=== PATIENT | male | born 1960 | race Caucasian/White ===

== ENCOUNTER 2016-12-08 13:02 | Emergency (ER) | payer MEDICAID ==
[~2016-12-08] VITALS: Ht 165.1 cm; Wt 68.0 kg
[2016-12-08 13:25] LABS: BASOPHILS % (AUTO) 0.5 % (0.0-2.0); DIFF TOTAL % 100 %; EOSINOPHILS # (AUTO) 0.1 /CMM (0.0-0.7); EOSINOPHILS % (AUTO) 1.8 % (0.0-6.0); HEMATOCRIT 49 % (39-51); HEMOGLOBIN 15.5 g/dL (13.5-17.5); LYMPHOCYTES # (AUTO) 2.3 /CMM (0.8-4.8); MEAN CORPUSCULAR HEMOGLOBIN 26 PG (26.0-33.0); MEAN CORPUSCULAR HGB CONC 32 g/dl (31.0-36.0); MEAN CORPUSCULAR VOLUME 83 fL (80-96); MONOCYTES # (AUTO) 0.9 /CMM (0.1-1.30); MONOCYTES % (AUTO) 11.5 % (2.0-12.0); NEUTROPHILS # (AUTO) 4.3 /CMM (1.8-8.9); NEUTROPHILS % (AUTO) 56.2 % (43.0-81.0); PLATELET COUNT (AUTO) 230 /CMM (150-450); RED BLOOD CELL COUNT(AUTO) 5.91 MIL/uL (4.5-6.0); WHITE BLOOD COUNT (AUTO) 7.6 K/uL (4.3-11.0)
[2016-12-08 13:43] LABS: INR 1.02 (0.87-1.13); PROTHROMBIN TIME 10.7 SECS (9.5-12.7)
[2016-12-08 13:45] LABS: ALBUMIN 3.7 g/dL (3.4-5.0); BILIRUBIN,DIRECT 0.1 mg/dL (0.0-0.2); BILIRUBIN,TOTAL 0.4 mg/dL (0.2-1.0); CALCIUM, SERUM 8.9 mg/dL (8.5-10.1); INDIRECT BILIRUBIN 0.3 mg/dL (0.0-1.1); POTASSIUM 3.7 mmol/L (3.5-5.1); TOTAL PROTEIN, SERUM 6.9 g/dL (6.4-8.2)
[2016-12-08 15:30] VITALS: BP 120/70
== END 2016-12-08 15:31 | disposition home or self-care (01) ==
LOC: ER 13:05
DX: S09.90XA Unspecified injury of head, initial encounter (principal); H54.62 Unqualified visual loss, left eye, normal vision right eye; H26.9 Unspecified cataract; R56.9 Unspecified convulsions; R79.1 Abnormal coagulation profile; V43.52XA Car driver injured in collision with other type car in traffic accident, initial encounter; Y93.89 Activity, other specified; Y92.89 Other specified places as the place of occurrence of the external cause; Y99.9 Unspecified external cause status
CPT/HCPCS: 36415; 70450; 70480; 71010; 72125; 72170; 80048; 80076; 83690; 85025; 85730; 99285; A4606; L0172; Z7610

== ENCOUNTER 2017-02-14 06:59 | Inpatient (IN) | payer MEDICAID ==
[~2017-02-14] VITALS: Ht 170.2 cm; Wt 68.5 kg
--- NOTE | 2017-02-14 07:10 | NUR ---
PT BIB SELF C/O CP "STABBING LIKE AN ELEPHANT" AND "LIKE MY HEART IS EXPLODING" SINCE 05. NO RADIATION, NO PROVOCATION. C/O ASSOCIATED DIZZINESS AND DIAPHORESIS. SKIN WARM NONDIAPHORETIC UPON ASSESSMENT. PT REPORTS DYSPNEA; RESP APPEAR EVEN AND UNLABORED, SPO2 100% ON 2LPM VIA NC PER PROTOCOL. PT IS SEEN SHAKING, WHICH HE REPORTS IS D/T PAIN; ABLE TO STOP SHAKING ON COMMAND. EKG IN PROCESS. A/OX4. TO BEDSIDE FOR EVAL. IN ER BED 05 ON MONITOR.
[2017-02-14] MEDS ORDERED: DILTIAZEM HCL 25 MG IV ONE (07:13)
--- NOTE | 2017-02-14 07:13 | NUR ---
DR. FORBES AT BEDSIDE FOR EVAL.
--- NOTE | 2017-02-14 07:18 | NUR ---
DILTIAZEM 20MG SLOW IVP PER VERBAL ORDER BY DR FORBES, AT BEDSIDE.
[2017-02-14] MEDS ORDERED: IV SET PRIMARY 1 EA INFUS.SET MC ONE ×2 (07:20→08:43)
[2017-02-14] MEDS ORDERED: ASPIRIN 325 MG TABLET ONE (07:20)
[2017-02-14] MEDS ORDERED: IV NS 0.9% 1,000 ML ONE ×2 (07:20→08:43)
--- NOTE | 2017-02-14 07:26 | NUR ---
CP RELIEVED TO 05/10, PT STATES HE FEELS IT "COMING DOWN"
[2017-02-14] MEDS ORDERED: IV NS 0.9% 1,000 ML BAG IV ONE ×2 (07:30→08:30)
[2017-02-14] MEDS ORDERED: NITROGLYCERIN 0.4 MG/TAB BOTTLE SL ONE (07:30)
[2017-02-14] MEDS ORDERED: ASPIRIN 325 MG TABLET PO ONE (07:30)
[2017-02-14] MEDS ORDERED: NITROGLYCERIN 0.4 MG/TAB BOTTLE ONE (07:35)
--- NOTE | 2017-02-14 07:39 | NUR ---
1ST DOSE NITRO 0.4MG SL ADMINISTERED. PT REPORTS PAIN IS "COMING BACK", NOW 8. HR 100, BP 120/71.
[2017-02-14] MEDS ORDERED: IOHEXOL-350 100 ML VIAL IV ONE (07:42)
[2017-02-14] MEDS ORDERED: CT SWABBABLE VALVE TRANS SET 1 EA INFUS.SET MC ONE (07:42)
[2017-02-14] MEDS ORDERED: IV NS 0.9% 250 ML IV ONE ×2 (07:42→08:43)
[2017-02-14 07:44] LABS: BASOPHILS % (AUTO) 0.3 % (0.0-2.0); EOSINOPHILS % (AUTO) 0.4 % (0.0-6.0); HEMATOCRIT 47 % (39-51); HEMOGLOBIN 15.6 g/dL (13.5-17.5); LYMPHOCYTES # (AUTO) 1.8 /CMM (0.8-4.8); LYMPHOCYTES % (AUTO) 18.2 % (20.0-44.0); MEAN CORPUSCULAR HEMOGLOBIN 28 PG (26.0-33.0); MEAN CORPUSCULAR HGB CONC 33 g/dl (31.0-36.0); MEAN CORPUSCULAR VOLUME 84 fL (80-96); MONOCYTES % (AUTO) 9.7 % (2.0-12.0); NEUTROPHILS % (AUTO) 71.4 % (43.0-81.0); PLATELET COUNT (AUTO) 252 /CMM (150-450); RDW COEFFICIENT OF VARIATION 15.7 (11.5-15.0); RED BLOOD CELL COUNT(AUTO) 5.56 MIL/uL (4.5-6.0); WHITE BLOOD COUNT (AUTO) 9.8 K/uL (4.3-11.0)
--- NOTE | 2017-02-14 07:45 | NUR ---
2ND DOSE NITRO SL ADMISINTERED FOR 8/10 CP, NO RELIEF FROM FIRST DOSE. HR 100, BP 123/75
[2017-02-14] MEDS ORDERED: MORPHINE SULFATE INJ 2 MG/ML DISP.SYRIN ONE (07:47)
--- NOTE | 2017-02-14 07:53 | NUR ---
MORPHINE 2MG AND 3RD DOSE NITRO 0.4MG SL ADMINISTERED, 06/10 PAIN. HR 103, BP 123/75.
[2017-02-14 07:57] LABS: CALCIUM, SERUM 8.9 mg/dL (8.5-10.1); CARBON DIOXIDE 25 mmol/L (21-32); CHLORIDE 109 mmol/L (98-107); CREATININE 1.2 mg/dL (0.6-1.3); GFR 63 mL/min (>60); GLUCOSE 129 mg/dL (74-106); POTASSIUM 4.5 mmol/L (3.5-5.1); SODIUM SERUM 146 mmol/L (136-145); UREA NITROGEN, BLOOD 15 mg/dL (7-18)
[2017-02-14] MEDS ORDERED: DILTIAZEM HCL 25 MG IV IV ONE (08:00)
[2017-02-14] MEDS ORDERED: MORPHINE SULFATE INJ 2 MG/ML DISP.SYRIN IV ONE (08:00)
[2017-02-14 08:02] LABS: D-DIMER 0.29 mg/L(FEU (0.17-0.50); INR 1.03 (0.87-1.13)
[2017-02-14 08:05] LABS: TROPONIN I < 0.017 ng/mL (0.00-0.056)
[2017-02-14 08:10] LABS: B-TYPE NATRIURETIC PEPTIDE 111 PG/ML (0-125)
--- NOTE | 2017-02-14 08:10 | NUR ---
XRAY AT BEDSIDE
[2017-02-14 08:14] LABS: LACTIC ACID 2.6 mmol/L (0.4-2.0)
--- NOTE | 2017-02-14 08:15 | NUR ---
PT TRANSPORTED TO CT IN STABLE CONDITION
[2017-02-14 08:26] LABS: CANNABINOID, URINE NEGATIVE (NEGATIVE); PHENCYCLIDINE SCREEN,URINE NEGATIVE (NEGATIVE)
[2017-02-14 08:27] LABS: APPEARANCE,URINE CLEAR (CLEAR); BILIRUBIN,URINE NEGATIVE (NEGATIVE); BLOOD, URINE TRACE Ery/uL (NEGATIVE); COLOR,URINE YELLOW (YELLOW); KETONES,URINE NEGATIVE (NEGATIVE); LEUKOCYTE ESTERASE ,URINE NEGATIVE (NEGATIVE); NITRITE, URINE NEGATIVE (NEGATIVE); PROTEIN,URINE NEGATIVE (NEGATIVE); UGLUCOSE NEGATIVE (NEGATIVE); UROBILINOGEN,URINE 0.2 EU/dL (0.2)
[2017-02-14 08:30] LABS: ADD URINE CULTURE NO; BACTERIA,URINE None seen /HPF (None Seen); RBC,URINE 0-2 /HPF (0-2); SQUAMOUS EPITHELIAL CELL,UR 0-2 /HPF (None Seen); WBC,URINE 0-2 /HPF (0-3)
--- NOTE | 2017-02-14 08:35 | NUR ---
nursing sup paged for tele bed
[2017-02-14] MEDS ORDERED: NITROGLYCERIN PACKET 1 GM PACKET ONE (08:49)
[2017-02-14] MEDS ORDERED: NAPR220T66 PO (08:59)
[2017-02-14] MEDS ORDERED: GABA-532 PO (08:59)
[2017-02-14] MEDS ORDERED: NITROGLYCERIN PACKET 1 GM PACKET TD ONE (09:00)
--- NOTE | 2017-02-14 09:13 | NUR ---
PANEL ON-CALL PAGED
[2017-02-14] MEDS ORDERED: ACETAMINOPHEN 325 MG TABLET PO PRN (09:30)
[2017-02-14] MEDS ORDERED: ONDANSETRON HCL/PF 4 MG/2 ML VIAL IVP PRN (09:30)
[2017-02-14] MEDS ORDERED: ASPIRIN 81 MG TAB.CHEW PO SCH (09:30)
[2017-02-14] MEDS ORDERED: ZOLPIDEM TARTRATE 5 MG TABLET PO PRN (09:30)
[2017-02-14 09:54] LABS: BILIRUBIN,DIRECT 0.1 mg/dL (0.0-0.2); BILIRUBIN,TOTAL 0.5 mg/dL (0.2-1.0)
[2017-02-14 10:08] LABS: LACTIC ACID REFLEX 0.9 mmol/L (0.4-1.9)
--- NOTE | 2017-02-14 10:29 | NUR ---
report given to mo small for admission. NAD noted. resting comfortably, all needs attended to. VSS.
--- NOTE | 2017-02-14 10:52 | NUR ---
PT TRANSPORTED TO [facility] IN STABLE CONDITION VIA ACLS PROTOCOL
--- NOTE | 2017-02-14 11:12 | NUR ---
PLANNER CHIEF NOTES PATIENT RECEIVED FROM ER AT 1052, IN STABLE CONDITION, COMPLAINS OF CHEST PAIN 3/10, WITH PAIN RADIATING TO LEFT ARM, PATIENT NOTED WITH NITRO PASTE ON LEFT CHEST, NEEDS ATTENDED, PLACED ON MONITOR AND SHOWS SINUS RHYTHM ON 80-90S, PATIENT SEEN BY DR. ALEX WITH ORDER TO TRANSFER PATIENT TO [facility] FOR ADVANCED CARE. PATIENT AWARE.
[2017-02-14] MEDS ORDERED: AMIODARONE 900 MG in IV D5W 500 ML IV PRN (11:30)
[2017-02-14] MEDS ORDERED: AMIODARONE 150 MG in IV D5W 100 ML IV ONE (11:30)
--- NOTE | 2017-02-14 12:00 | NUR ---
SALES PROMOTION COORDINATOR NOTES PATIENT SEEN AND EXAMINED BY DR. GUERRERO, PATIENT IN STABLE CONDITION TRANSFERRED TO [facility] IN BED 101 VIA ACLS PROTOCOL, MONITOR SHOWS SINUS RHYTHM 80S, BEDSIDE REPORT GIVEN TO MARINA.
[2017-02-14] MEDS ORDERED: IV SET PRIMARY PUMP SET 1 EA INFUS.SET MC ONE ×2 (12:06→14:09)
--- NOTE | 2017-02-14 12:15 | NUR ---
[facility] RN NOTE RECEIVED PATIENT FROM [facility] ALERT ,ORIENTED ,PACED ON TELE MONITOR SR 76 C\O CHEST PAIN 8\1O SCALE [facility]OS[facility] ORIENTATION DONE , VS TAKEN BODY CHECK DONE , ADMISSION ORDER CARRIED OUT HL ON RT AC AND LT AC HL INTACT NO S\S INFECTION NOTED, RESPIRATION UNLABORED ,PER DR GUERRERO PLACED ON AMIODARONE DRIP ORDERED , PLAN OF CARE DISCUSSED WITH PATIENT , WILL CONT TO MONITOR CLOSELY
[2017-02-14] MEDS: MORPHINE SULFATE INJ 2 MG/ML DISP.SYRIN IV PRN ×3 (12:22→20:48)
[2017-02-14 12:36] LABS: THYROID STIMULATING HORMONE 0.628 uIU/mL (0.358-3.74)
[2017-02-14 13:22] LABS: MAGNESIUM 1.8 mg/dL (1.8-2.4); PHOSPHORUS 3.2 mg/dL (2.5-4.9)
[2017-02-14 13:32] VITALS: BP 135/78
[2017-02-14] MEDS: IV NS 0.9% 1,000 ML IV PRN (14:14)
[2017-02-14] MEDS ORDERED: AMIODARONE 900 MG in IV D5W 482 ML IV PRN (14:30)
--- NOTE | 2017-02-14 14:47 | NUR ---
tele rnnnote morphine 1mg give for chest pain as ordered, will monitor closely ,still sr on monitor sr cont amiodarone dripp 1 mg as ordered ,new hl,on lt hand inserted with good blood return ,started on ivf as ordered 1mg i Addendum: 02/14/17 at 1834 by NEGRITO CARBAJAL RN CONT ON AMIODARONE DRIP ORDERED ,RECEIVED MORPHINE 1 MG ORDERED FOR PAIN
[2017-02-14 16:00] VITALS: BP_SYST 135; BP_DIAS 72; BP_DIAS 78
--- NOTE | 2017-02-14 16:34 | NUR ---
[facility] RN NOTE 2DECHO DONE ,EF 35/40% ,PAGED DR ALEX .AWAIT FOR RERUN CALL
[2017-02-14] MEDS: RIVAROXABAN 10 MG TABLET PO SCH (16:58)
[2017-02-14] MEDS: METOPROLOL TARTRATE 25 MG TABLET PO SCH (17:00)
--- NOTE | 2017-02-14 18:18 | NUR ---
[facility] RN NOTE CALLED TO TO DR ALEX BUT DR PHELPS ON NOTIFIED THAT EF TODAY 35% PER ECHO , PATIENT IS ASYMPTOMATIC ,NO C\O CHEST PAIN OR SOB AT THIS TIME , ALSO NOTIFIED THAT ON TELE MONITOR SR AND PATIENT ON AMIODARONE DRIP ,STATED ITS OK CONT DRIP NO NEW ORDER GIVE AT THIS TIME, DR ALEX TO SEE IN AM
--- NOTE | 2017-02-14 18:35 | NUR ---
[facility] RN NOTE STILL ON AMIODARONE DRIP PER HOSPITAL PROTOCOL, CHANGED DOSE TO 0.5 MG PER PROTOCOL
[2017-02-14 20:00] VITALS: BP 97/63
--- NOTE | 2017-02-14 20:50 | NUR ---
RN NOTES RECEIVED PT AWAKE ON BED. AOX4 ABLE TO MAKE KNOWN NEEDS. NO ACUTE RESP DISTRESS WATCHING TV ON BED. AFEBRILE WITH O2 2 LPM VIA NC SATING 98%. SR HR 65 ON TELE MONITOR. IV SITE ON RAC G 18 RUNNING WITH AMIODARONE @ 0.5 MG/MIN AND LEFT HAND G 22 RUNNING WITH NS @ 100 CC/HR. PT IS COMPLAINING OF PAIN PAIN MEDICINE GIVEN ORDERED. COMPLAINING OF PAIN AT SCALE OF 7/10 PAIN MEDICINE GIVEN ORDERED. ENCOURAGE TO USED CALL LIGHT FOR ASSISTANCE. KEPT PT CLEAN AND COMFORTABLE ON BED. WILL CONTINUE TO MONITOR.
[2017-02-14] MEDS: SIMVASTATIN 20 MG TABLET PO SCH (20:58)
[2017-02-15] VITALS (8 sets, daily range): BP systolic 100–114; BP diastolic 63–75
[2017-02-15] MEDS: MORPHINE SULFATE INJ 2 MG/ML DISP.SYRIN IV PRN (00:34)
[2017-02-15] MEDS: IV NS 0.9% 1,000 ML IV PRN ×2 (00:37→10:32)
[2017-02-15] MEDS: NITROGLYCERIN 0.4 MG/TAB BOTTLE SL PRN ×3 (03:25→03:52)
--- NOTE | 2017-02-15 03:26 | NUR ---
RN NOTES NITROGLYCERIN SL GIVEN PER PATIENT HE HAS 7/10 SCALE STILL INSPITE OF GIVING PAIN MEDICINE, WILL TRIED ANOTHER DOSE IF PAIN DID NOT SUBSIDE AFTER 5 MINUTES. NO SOB OR DISTRESS NOTED. PT TELLING STORIES ABOUT WHAT HAPPEN ON HIS ACCIDENT. WILL CONTINUE TO MONITOR.
--- NOTE | 2017-02-15 04:09 | NUR ---
RN NOTES INFORMED DR. PALMA REGARDING PATIENT STILL COMPLAINING OF CHEST PAIN AT SCALE OF 7/10 AFTER MORPHINE IVP X 2 DOSES GIVEN 3 HOUR AGO WELL NITROGLYCERIN X 3 DOSES GIVEN. PER PATIENT HE FEELS LIKE SOMEONE STEPPING ON HIS CHEST BUT NOT RADIATING. BUT WHEN HE PUT PILLOW ON HIS CHEST ITS SUBSIDE A LITTLE BIT. TEMP 98, RESP 19 PULSE 75 BP 108/71 SATING 98% IN O2 2LPM VIA NC. PER DR. PALMA TO GIVE MORPHINE 4 MG IVP Q3H PRN PLACED AND ACKNOWLEDGE ORDER.
[2017-02-15] MEDS: MORPHINE SULFATE INJ 4 MG/ML DISP.SYRIN IV PRN ×3 (04:21→16:13)
--- NOTE | 2017-02-15 06:54 | NUR ---
RN NOTES PT DIDN'T SLEEP LAST NIGHT OFFERED PRN SLEEPING PILL MEDICINE BUT REFUSED TO TAKE IT. PT COMPLAINING OF PAIN AT SCALE OF 7/10 SCALE ON HIS CHEST LIKE SOMEONE PUNCHED HIM PRN MEDICINE GIVEN ORDERED EFFECTIVE FOR A LITTLE WHILE. BUT PT STILL COMPLAINING OF PAIN VS STABLE. NO SOB SATING FINE . IVF ONGOING AMIODARONE DRIP RUNNING @ 0.5 MG/MIN.= 16.6 ML/HR TOLERATED WELL.IV SITE INTACT AND PATENT. KEPT PT CLEAN AND COMFORTABLE IN BED. WILL ENDORSED CONTIUITY OF CARE TO AM NURSE.
[2017-02-15 06:58] LABS: BASOPHILS % (AUTO) 0.2 % (0.0-2.0); EOSINOPHILS # (AUTO) 0.1 /CMM (0.0-0.7); EOSINOPHILS % (AUTO) 1.3 % (0.0-6.0); HEMATOCRIT 41 % (39-51); HEMOGLOBIN 13.7 g/dL (13.5-17.5); LYMPHOCYTES # (AUTO) 1.4 /CMM (0.8-4.8); LYMPHOCYTES % (AUTO) 23.4 % (20.0-44.0); MEAN CORPUSCULAR HEMOGLOBIN 29 PG (26.0-33.0); MEAN CORPUSCULAR HGB CONC 34 g/dl (31.0-36.0); MEAN CORPUSCULAR VOLUME 85 fL (80-96); MONOCYTES # (AUTO) 0.7 /CMM (0.1-1.30); MONOCYTES % (AUTO) 12.1 % (2.0-12.0); NEUTROPHILS # (AUTO) 3.8 /CMM (1.8-8.9); PLATELET COUNT (AUTO) 181 /CMM (150-450); RDW COEFFICIENT OF VARIATION 15.9 (11.5-15.0); RED BLOOD CELL COUNT(AUTO) 4.81 MIL/uL (4.5-6.0); WHITE BLOOD COUNT (AUTO) 6.1 K/uL (4.3-11.0)
--- NOTE | 2017-02-15 07:05 | NUR ---
RN INITIAL NOTES RECEIVED PT AWAKE, A/OX4. NO RESPIRATORY DISTRESS NOTED. NO SOB NOTED. DENIES CHEST PAIN. DENIES ANY PAIN. ON 02 AT 2LPM VIA NC. SINUS RHYTHM ON MONITOR. LH #22 AND RAC #[address] ON AMIO DRIP AT 0.5MG/MIN. ON NS AT 100ML/HR. PT COMFORTABLE. CALL LIGHT WITHIN REACH. WILL MONITOR.
[2017-02-15 07:10] LABS: ALANINE AMINOTRANSFERASE 27 U/L (12-78); ALKALINE PHOSPHATASE 56 U/L (46-116); ASPARTATE AMINOTRANSFERASE 16 U/L (15-37); BILIRUBIN,TOTAL 0.7 mg/dL (0.2-1.0); CALCIUM, SERUM 7.9 mg/dL (8.5-10.1); CARBON DIOXIDE 26 mmol/L (21-32); CHLORIDE 110 mmol/L (98-107); GFR 77 mL/min (>60); GLUCOSE 90 mg/dL (74-106); MAGNESIUM 1.8 mg/dL (1.8-2.4); PHOSPHORUS 2.6 mg/dL (2.5-4.9); POTASSIUM 4.3 mmol/L (3.5-5.1); SODIUM SERUM 143 mmol/L (136-145); TOTAL PROTEIN, SERUM 5.7 g/dL (6.4-8.2); UREA NITROGEN, BLOOD 12 mg/dL (7-18)
[2017-02-15 07:21] LABS: TROPONIN I < 0.017 ng/mL (0.00-0.056)
[2017-02-15] MEDS: METOPROLOL TARTRATE 25 MG TABLET PO SCH ×2 (08:10→16:05)
[2017-02-15] MEDS ORDERED: ASPIRIN 81 MG TAB.CHEW PO SCH (09:00)
[2017-02-15 11:24] LABS: CHOLESTEROL 97 mg/dL (<200); HDL CHOLESTEROL 28 mg/dL (40-60); LDL 58 mg/dL (0-99); TRIGLYCERIDES 80 mg/dL (30-150)
[2017-02-15] MEDS: AMIODARONE HCL 200 MG TABLET PO SCH (16:03)
[2017-02-15] MEDS: RIVAROXABAN 10 MG TABLET PO SCH (16:04)
--- NOTE | 2017-02-15 18:40 | NUR ---
RN CLOSING NOTES PT REMAINS A/OX4. NO RESPIRATORY DISTRESS NOTED. PT WELL MANAGED. KEPT COMFORTABLE. IV LINE IN PLACE. KEPT CLEAN AND DRY. ALL NEEDS ATTENDED AN D MET. CALL LIGHT WITHIN REACH WILL. WILL ENDORSE FOR CONTINUITY OF CARE.
--- NOTE | 2017-02-15 20:00 | NUR ---
RN INITIAL NOTE ; PT ON THE BED RESTING COMFORTABLY WITHOUT ANY DISTRESS , A/O X 4 WITH PERIODS OF FORGETFULNESS . BREATHING EVEN AND UNLABORED ON 2 LPM VIA NC . SR WITH HR 80s ON TELE MONITOR, PERIPHERAL IV IN RAC 18G INTACT AND PATENT, DENIED ANY CHEST PAIN AT THIS TIME. CONTINENT BOWEL/BLADDER. BED IN THE LOWEST/LOCKED POSITION, SAFETY MEASURES APPLIED, CALL LIGHT WITHIN REACH, STRESS TEST TOMORROW, NPO POST MIDNIGHT , NO COFFEE/TEA , PT MADE AWARE. WILL CONTINUE TO MONITOR .
[2017-02-15] MEDS: SIMVASTATIN 20 MG TABLET PO SCH (21:39)
[2017-02-16] VITALS: BP 103/61
[2017-02-16 04:00] VITALS: BP 104/70
--- NOTE | 2017-02-16 07:00 | NUR ---
RN EOS NOTE; PT REMAINED STABLE DURING THE SHIFT, NO ANY DISTRESS NOTED. DENIED ANY CHEST PAIN , ALL NEEDS ATTENDED PROMPTLY, ON NPO STATUS FOR STRESS TEST , CALL LIGHT WITHIN REACH. WILL ENDORSE TO NEXT SHIFT FOR CONTINUITY OF CARE.
--- NOTE | 2017-02-16 07:20 | NUR ---
RN INITIAL NOTES: Received patient on bed during rounds, awake, alert and oriented x4, able to make needs known, call lights placed within reached, instructed to press call light when in need of any assistance, patient verbalized understanding of home instructions. Patient instructed NPO, maintained, no coffee no tea no Betablockers, For Lexiscan today consent up. With IV Plug over RAC G18 flushed with NS and patent, SL. NO SOB, No LOC, respirations are even and unlabored, no acute distress noted. Kept clean and dry. Provided safety and comfort measures. patient able to ambulate/BPR with contact guard assist, no chestpain noted at this time, patient appears calm and pleasant. To continue to monitor accordingly.
[2017-02-16 08:00] VITALS: BP 108/73
[2017-02-16] MEDS ORDERED: REGADENOSON 0.4 MG/5 ML DISP.SYRIN IVP ONE (08:00)
[2017-02-16 10:00] VITALS: BP 129/78
[2017-02-16 10:11] VITALS: BP 129/78
[2017-02-16] MEDS: METOPROLOL TARTRATE 25 MG TABLET PO SCH (10:11)
[2017-02-16] MEDS: AMIODARONE HCL 200 MG TABLET PO SCH (10:11)
--- NOTE | 2017-02-16 10:11 | NUR ---
RN NOTES: Due medications given as ordered.
[2017-02-16] MEDS ORDERED: AMIO200T7 PO (13:09)
[2017-02-16] MEDS ORDERED: RIVA10TA PO (13:09)
[2017-02-16] MEDS ORDERED: METO25TA20 PO (13:09)
--- NOTE | 2017-02-16 16:46 | NUR ---
RN NOTES: Patient dc to home at 1600hrs, dc paper forms explained, signed and verbalized understanding of home instructions, emphasized to see PCP in a week for review of medications. No signs and symptoms of distress noted, no pain or discomfort, no chestpain noted. Right Antecubital IV plug removed, applied slight pressure dressing, no bleeding noted. Patient accompanied to lobby by COLLEGE ATHLETIC DIRECTOR ambulatory in stable condition, as per patient he will wait for his friend in the lobby for picker tender.
== END 2017-02-16 15:54 | disposition home or self-care (01) | DRG 201 ==
LOC: ER 07:02 → MED 10:45 → TELE-TD 11:49 → TELE1 02-15 12:04 → MEDSG1 02-16 10:35
PROVIDERS: ADMIT Internal Medicine; ATTEND Internal Medicine
DX: I48.91 Unspecified atrial fibrillation (principal); E87.0 Hyperosmolality and hypernatremia; E87.2 Acidosis; D68.59 Other primary thrombophilia; E86.0 Dehydration; Z98.1 Arthrodesis status; Z98.61 Coronary angioplasty status; I25.119 Atherosclerotic heart disease of native coronary artery with unspecified angina pectoris
CPT/HCPCS: 36415; 71010-TC; 80048-TC; 80053-TC; 80061-TC; 80305; 81000-TC; 82247-TC; 82248-TC; 82306; 83605-TC; 83735-TC; 83880; 84100-TC; 84439-TC; 84443-TC; 84484-TC; 85025-TC; 85378-TC; 85730-TC; 87040-TC; 87081-TC; 93307-TC; 94799-TC; A4606; A6403; A9502; J0282; J2270; J2785; J3490; J7030; J7050; J7060; Q9967; Z7610

== ENCOUNTER 2017-09-01 23:06 | Inpatient (IN) | payer MEDICARE, MEDICAID ==
[~2017-09-01] VITALS: Ht 170.2 cm; Wt 63.0 kg
[~2017-09-01 23:06] MED LIST: AMIO200T7 PO; GABA-532 PO; METO25TA20 PO; NAPR220T66 PO; RIVA10TA PO
--- NOTE | 2017-09-01 23:20 | NUR ---
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 UPON ARRIVAL TO ER, PATIENT IS AAOX4, NAD NOTED. BREATHING EVEN AND UNLABORED. VSS. NONDIAPHORETIC. NSR ON THE TELE. GOWNED. COMFORT MEASURES RENDERED. ONGOING CARDIAC AND VS MONITOR.
--- NOTE | 2017-09-01 23:28 | NUR ---
CALLED FOR TELE BED
[2017-09-01] MEDS ORDERED: NITROGLYCERIN 0.4 MG/TAB BOTTLE SL ONE (23:30)
[2017-09-01] MEDS ORDERED: ASPIRIN 325 MG TABLET PO ONE (23:30)
--- NOTE | 2017-09-01 23:30 | NUR ---
started a saline lock on the lac g20, bloo drawn and sent to lab.
[2017-09-01] MEDS ORDERED: NITROGLYCERIN 0.4 MG/TAB BOTTLE ONE (23:31)
[2017-09-01] MEDS ORDERED: ASPIRIN 325 MG TABLET ONE (23:31)
[2017-09-01 23:33] LABS: BASOPHILS % (AUTO) 0.6 % (0.0-2.0); EOSINOPHILS # (AUTO) 0.1 /CMM (0.0-0.7); EOSINOPHILS % (AUTO) 1.8 % (0.0-6.0); HEMATOCRIT 47 % (39-51); HEMOGLOBIN 15.7 g/dL (13.5-17.5); LYMPHOCYTES # (AUTO) 1.9 /CMM (0.8-4.8); LYMPHOCYTES % (AUTO) 24.7 % (20.0-44.0); MEAN CORPUSCULAR HEMOGLOBIN 29 PG (26.0-33.0); MEAN CORPUSCULAR HGB CONC 33 g/dl (31.0-36.0); MEAN CORPUSCULAR VOLUME 88 fL (80-96); MONOCYTES # (AUTO) 0.8 /CMM (0.1-1.30); NEUTROPHILS # (AUTO) 4.7 /CMM (1.8-8.9); NEUTROPHILS % (AUTO) 61.9 % (43.0-81.0); PLATELET COUNT (AUTO) 208 /CMM (150-450); RDW COEFFICIENT OF VARIATION 14.1 (11.5-15.0); RED BLOOD CELL COUNT(AUTO) 5.34 MIL/uL (4.5-6.0); WHITE BLOOD COUNT (AUTO) 7.5 K/uL (4.3-11.0)
[2017-09-01 23:43] LABS: CARBON DIOXIDE 28 mmol/L (21-32); CHLORIDE 105 mmol/L (98-107); GLUCOSE 95 mg/dL (74-106); POTASSIUM 4.2 mmol/L (3.5-5.1); SODIUM SERUM 142 mmol/L (136-145); UREA NITROGEN, BLOOD 13 mg/dL (7-18)
[2017-09-01 23:51] LABS: D-DIMER < 0.19 mg/L(FEU (0.17-0.50); INR 1.01 (0.87-1.13); PARTIAL THROMBOPLASTIN TIME 27 SEC (23-34); PROTHROMBIN TIME 10.5 SECS (9.5-12.7)
[2017-09-01 23:52] LABS: TROPONIN I < 0.017 ng/mL (0.00-0.056)
--- NOTE | 2017-09-01 23:56 | NUR ---
TELE 323-2
--- NOTE | 2017-09-02 00:12 | NUR ---
RN TELEHEALTH MICHOACANO AT BEDSIDE TO EVAL.
--- NOTE | 2017-09-02 00:15 | NUR ---
Report given to Rvi RN for admission and nafisa.
[2017-09-02] MEDS ORDERED: MAGNESIUM HYDROXIDE 30 ML UDC PO PRN (00:30)
[2017-09-02] MEDS ORDERED: MAG HYDROX/AL HYDROX/SIMETH 30 ML UDC PO PRN (00:30)
[2017-09-02] MEDS ORDERED: ZOLPIDEM TARTRATE 5 MG TABLET PO PRN (00:30)
[2017-09-02] MEDS ORDERED: ACETAMINOPHEN 325 MG TABLET PO PRN (00:30)
[2017-09-02] MEDS ORDERED: ONDANSETRON HCL/PF 4 MG/2 ML VIAL IVP PRN (00:30)
[2017-09-02] MEDS ORDERED: MORPHINE SULFATE INJ 2 MG/ML DISP.SYRIN IV PRN (00:30)
[2017-09-02] MEDS ORDERED: HYDROCODONE/APAP 5/325MG 1 EACH TABLET PO PRN (00:30)
[2017-09-02 00:40] VITALS: BP 122/73
--- NOTE | 2017-09-02 00:40 | NUR ---
RN NOTES RECEIVED PATIENT FROM ER FOR DX CHEST PAIN; R/O ACS. AO X 3, ABLE TO MAKE NEEDS KNOWN. NO ACUTE DISTRESS NOTED. DENIES CHEST PAIN AT THIS TIME. TELE READING SR HR 83. IV SITE PATENT, INTACT; FLUSHED. SKIN INTACT. ON LOW BED WITH BILATERAL UPPER SIDE RAILS UP. CALL LIGHT WITHIN EASY REACH. WILL CONTINUE TO MONITOR.
[2017-09-02 00:45] VITALS: BP 122/73
[2017-09-02] MEDS ORDERED: DIAZEPAM 5 MG TABLET PO PRN (01:00)
[2017-09-02] MEDS ORDERED: ACETAMINOPHEN 325 MG TABLET ONE (01:04)
[2017-09-02] MEDS ORDERED: ZOLPIDEM TARTRATE 5 MG TABLET ONE (01:34)
[2017-09-02 04:00] VITALS: BP 121/79
[2017-09-02] MEDS ORDERED: NITROGLYCERIN 0.4 MG/TAB BOTTLE ONE (04:54)
[2017-09-02] MEDS: NITROGLYCERIN 0.4 MG/TAB BOTTLE SL PRN ×2 (05:00→08:21)
[2017-09-02 06:26] LABS: BASOPHILS % (AUTO) 0.5 % (0.0-2.0); EOSINOPHILS # (AUTO) 0.1 /CMM (0.0-0.7); EOSINOPHILS % (AUTO) 2.1 % (0.0-6.0); HEMATOCRIT 46 % (39-51); HEMOGLOBIN 15.6 g/dL (13.5-17.5); LYMPHOCYTES # (AUTO) 1.4 /CMM (0.8-4.8); LYMPHOCYTES % (AUTO) 23.7 % (20.0-44.0); MEAN CORPUSCULAR HEMOGLOBIN 30 PG (26.0-33.0); MEAN CORPUSCULAR HGB CONC 34 g/dl (31.0-36.0); MEAN CORPUSCULAR VOLUME 88 fL (80-96); MONOCYTES # (AUTO) 0.6 /CMM (0.1-1.30); MONOCYTES % (AUTO) 10.4 % (2.0-12.0); NEUTROPHILS # (AUTO) 3.7 /CMM (1.8-8.9); NEUTROPHILS % (AUTO) 63.3 % (43.0-81.0); PLATELET COUNT (AUTO) 195 /CMM (150-450); RDW COEFFICIENT OF VARIATION 14.3 (11.5-15.0); RED BLOOD CELL COUNT(AUTO) 5.26 MIL/uL (4.5-6.0); WHITE BLOOD COUNT (AUTO) 5.8 K/uL (4.3-11.0)
--- NOTE | 2017-09-02 06:32 | NUR ---
RN NOTES PATIENT ASLEEP, EASILY AROUSABLE. RESPIRATIONS EVEN. NO SIGNS OF PAIN NOTED. NEEDS ATTENDED. SAFETY PRECAUTIONS AND COMFORT MEASURES IN PLACE. WILL GIVE REPORT TO DAY SHIFT FOR CONTINUITY OF CARE.
[2017-09-02 06:45] LABS: TROPONIN I < 0.017 ng/mL (0.00-0.056)
[2017-09-02 06:52] LABS: CALCIUM, SERUM 8.8 mg/dL (8.5-10.1); CARBON DIOXIDE 27 mmol/L (21-32); CHLORIDE 106 mmol/L (98-107); GLUCOSE 90 mg/dL (74-106); MAGNESIUM 2.1 mg/dL (1.8-2.4); PHOSPHORUS 2.9 mg/dL (2.5-4.9); POTASSIUM 3.6 mmol/L (3.5-5.1); SODIUM SERUM 141 mmol/L (136-145); UREA NITROGEN, BLOOD 13 mg/dL (7-18)
[2017-09-02 07:00] VITALS: BP 124/84
[2017-09-02 08:00] VITALS: BP 115/76
--- NOTE | 2017-09-02 08:53 | NUR ---
PT. ALERT AND ORIENTED X3-C/CHEST PAIN RADIATING DOWN LT. ARM-MEDICATED WITH NTG.0.4 MG.
[2017-09-02] MEDS ORDERED: ASPIRIN 325 MG TABLET PO SCH (09:00)
[2017-09-02] MEDS ORDERED: METOPROLOL TARTRATE 25 MG TABLET PO SCH ×2 (09:00→17:00)
--- NOTE | 2017-09-02 09:00 | NUR ---
GOOD RELIEF WITH NTG.
[2017-09-02 09:23] VITALS: BP 115/76
[2017-09-02 09:41] LABS: CHOLESTEROL 147 mg/dL (<200); HDL CHOLESTEROL 46 mg/dL (40-60); LDL 93 mg/dL (0-99); TRIGLYCERIDES 43 mg/dL (30-150)
--- NOTE | 2017-09-02 09:44 | NUR ---
GIVEN SOLU-MEDROL PER DR. ALEX.
[2017-09-02] MEDS ORDERED: methylPREDNISolone SOD SUCC 125 MG/2ML VIAL IV ONE (10:00)
--- NOTE | 2017-09-02 10:15 | NUR ---
DR. ALEX IN AND ANGIO ORDERED,PT. MADE NPO-CONSENT SIGNED.
--- NOTE | 2017-09-02 12:30 | NUR ---
PROCEDURE CANCELLED.PT. WITH QUESTIONABLE ALLERGY DYE.
[2017-09-02] MEDS ORDERED: GABAPENTIN 100 MG CAPSULE PO SCH (13:00)
--- NOTE | 2017-09-02 13:00 | NUR ---
DR. ROSENTHAL IN DC ORDER WRITTEN.
--- NOTE | 2017-09-02 13:30 | NUR ---
HEP LOCK OUT,BELONGING SHEET SIGNED,ALL PAPERS SIGNED-TAKEN TO LOBBY BY UTILITY WORKER DRIVER AND ACCOMPANIED BY FRIEND.PT. WALKING.VERB. UNDERSTANDING OF INSTRUCTIONS.
[2017-09-02] MEDS ORDERED: AMIODARONE HCL 200 MG TABLET PO SCH (17:00)
[2017-09-02] MEDS ORDERED: RIVAROXABAN 10 MG TABLET PO SCH (17:00)
== END 2017-09-02 15:15 | disposition home or self-care (01) | DRG 313 ==
LOC: ER 23:14 → TELE 09-02 00:07
PROVIDERS: ADMIT Nurse Practitioner Acute Care; ATTEND Nurse Practitioner Acute Care
DX: R07.89 Other chest pain (principal); I25.10 Atherosclerotic heart disease of native coronary artery without angina pectoris; I48.91 Unspecified atrial fibrillation; F41.9 Anxiety disorder, unspecified; Z79.899 Other long term (current) drug therapy; Z98.890 Other specified postprocedural states; Z95.5 Presence of coronary angioplasty implant and graft; Z96.612 Presence of left artificial shoulder joint; Z96.611 Presence of right artificial shoulder joint; I10 Essential (primary) hypertension
CPT/HCPCS: 36415; 71010-TC; 80048-TC; 80061-TC; 83735-TC; 84100-TC; 84484-TC; 85025-TC; 85378-TC; 85730-TC; 87081-TC; J2930

== ENCOUNTER 2018-01-20 13:24 | Inpatient (IN) | payer MEDICARE, MEDICAID ==
[~2018-01-20] VITALS: Ht 170.2 cm; Wt 62.6 kg
[2018-01-20 14:14] LABS: BASOPHILS % (AUTO) 0.3 % (0.0-2.0); EOSINOPHILS # (AUTO) 0.2 /CMM (0.0-0.7); EOSINOPHILS % (AUTO) 2.3 % (0.0-6.0); HEMATOCRIT 40 % (39-51); HEMOGLOBIN 13.6 g/dL (13.5-17.5); LYMPHOCYTES # (AUTO) 1.5 /CMM (0.8-4.8); LYMPHOCYTES % (AUTO) 14.2 % (20.0-44.0); MEAN CORPUSCULAR HEMOGLOBIN 30 PG (26.0-33.0); MEAN CORPUSCULAR HGB CONC 34 g/dl (31.0-36.0); MEAN CORPUSCULAR VOLUME 88 fL (80-96); MONOCYTES # (AUTO) 1.1 /CMM (0.1-1.30); MONOCYTES % (AUTO) 10.8 % (2.0-12.0); NEUTROPHILS # (AUTO) 7.8 /CMM (1.8-8.9); NEUTROPHILS % (AUTO) 72.4 % (43.0-81.0); PLATELET COUNT (AUTO) 276 /CMM (150-450); RDW COEFFICIENT OF VARIATION 12.4 (11.5-15.0); RED BLOOD CELL COUNT(AUTO) 4.49 MIL/uL (4.5-6.0); WHITE BLOOD COUNT (AUTO) 10.6 K/uL (4.3-11.0)
[2018-01-20 14:25] LABS: CALCIUM, SERUM 9.1 mg/dL (8.5-10.1); CARBON DIOXIDE 27 mmol/L (21-32); CHLORIDE 102 mmol/L (98-107); CREATININE 1.1 mg/dL (0.6-1.3); GLUCOSE 98 mg/dL (74-106); POTASSIUM 4.7 mmol/L (3.5-5.1); SODIUM SERUM 137 mmol/L (136-145); UREA NITROGEN, BLOOD 20 mg/dL (7-18)
[2018-01-20 14:28] LABS: INR 0.97 (0.85-1.15)
[2018-01-20] MEDS ORDERED: IV NS 0.9% 1,000 ML BAG IV ONE (14:30)
[2018-01-20 14:32] LABS: ALANINE AMINOTRANSFERASE 33 U/L (12-78); ALBUMIN 2.9 g/dL (3.4-5.0); ALKALINE PHOSPHATASE 102 U/L (46-116); ASPARTATE AMINOTRANSFERASE 23 U/L (15-37); BILIRUBIN,DIRECT 0.2 mg/dL (0.0-0.2); BILIRUBIN,TOTAL 0.6 mg/dL (0.2-1.0); TOTAL PROTEIN, SERUM 6.9 g/dL (6.4-8.2)
[2018-01-20 14:34] LABS: TROPONIN I < 0.017 ng/mL (0.00-0.056)
[2018-01-20] MEDS ORDERED: ONDANSETRON HCL/PF 4 MG/2 ML VIAL ONE (15:28)
[2018-01-20] MEDS ORDERED: VANCOMYCIN 1 GM VIAL ONE (15:28)
[2018-01-20] MEDS ORDERED: MORPHINE SULFATE INJ 4 MG/ML DISP.SYRIN ONE (15:29)
[2018-01-20] MEDS ORDERED: ONDANSETRON HCL/PF - ER 4 MG/2 ML VIAL IV ONE (15:30)
[2018-01-20] MEDS ORDERED: VANCOMYCIN 1 GM in IV D5W 250 ML IV ONE (15:30)
[2018-01-20] MEDS ORDERED: MORPHINE SULFATE INJ 2 MG/ML DISP.SYRIN IV ONE (15:30)
[2018-01-20 16:00] VITALS: BP 101/63
[2018-01-20] MEDS ORDERED: MAG HYDROX/AL HYDROX/SIMETH 30 ML UDC PO PRN (16:00)
[2018-01-20] MEDS ORDERED: ONDANSETRON HCL/PF 4 MG/2 ML VIAL IVP PRN (16:00)
[2018-01-20] MEDS ORDERED: MAGNESIUM HYDROXIDE 30 ML UDC PO PRN (16:00)
[2018-01-20] MEDS ORDERED: Z GUARD REMEDY 2 OZ OINT TP PRN (16:00)
[2018-01-20] MEDS ORDERED: LOSA25TA13 PO (16:04)
[2018-01-20] MEDS ORDERED: METO25TA20 PO (16:04)
[2018-01-20] MEDS ORDERED: SULF1TAB48 PO (16:04)
[2018-01-20] MEDS ORDERED: OXYC-133 PO (16:04)
[2018-01-20] MEDS: ACETAMINOPHEN 325 MG TABLET PO PRN (17:42)
[2018-01-20] MEDS: IV NS 0.9% 1,000 ML IV PRN (18:12)
[2018-01-20] MEDS ORDERED: FEE PK DOSING 1 MIN EA MC ONE (18:48)
[2018-01-20 20:00] VITALS: BP_SYST 88; BP_DIAS 49; BP_DIAS 50
[2018-01-20] MEDS: HYDROCODONE/APAP 5/325MG 1 EACH TABLET PO PRN (22:01)
[2018-01-20] MEDS ORDERED: ZOLPIDEM TARTRATE 5 MG TABLET PO PRN (22:30)
[2018-01-20] MEDS: VANCOMYCIN 0.75 GM in IV D5W 250 ML IV SCH (23:01)
[2018-01-21] VITALS (7 sets, daily range): BP systolic 95–120; BP diastolic 52–72
[2018-01-21] MEDS: HYDROCODONE/APAP 5/325MG 1 EACH TABLET PO PRN ×4 (02:02→17:44)
[2018-01-21] MEDS: IV NS 0.9% 1,000 ML IV PRN (05:53)
[2018-01-21 07:47] LABS: BASOPHILS % (AUTO) 0.3 % (0.0-2.0); EOSINOPHILS # (AUTO) 0.2 /CMM (0.0-0.7); EOSINOPHILS % (AUTO) 4.5 % (0.0-6.0); HEMATOCRIT 38 % (39-51); HEMOGLOBIN 12.9 g/dL (13.5-17.5); LYMPHOCYTES % (AUTO) 17.8 % (20.0-44.0); MEAN CORPUSCULAR HEMOGLOBIN 31 PG (26.0-33.0); MEAN CORPUSCULAR HGB CONC 34 g/dl (31.0-36.0); MEAN CORPUSCULAR VOLUME 89 fL (80-96); MONOCYTES # (AUTO) 0.8 /CMM (0.1-1.30); MONOCYTES % (AUTO) 15.1 % (2.0-12.0); NEUTROPHILS # (AUTO) 3.3 /CMM (1.8-8.9); NEUTROPHILS % (AUTO) 62.3 % (43.0-81.0); PLATELET COUNT (AUTO) 218 /CMM (150-450); RDW COEFFICIENT OF VARIATION 13.3 (11.5-15.0); RED BLOOD CELL COUNT(AUTO) 4.21 MIL/uL (4.5-6.0); WHITE BLOOD COUNT (AUTO) 5.4 K/uL (4.3-11.0)
[2018-01-21 08:05] LABS: CALCIUM, SERUM 8.3 mg/dL (8.5-10.1); CREATININE 0.9 mg/dL (0.6-1.3); MAGNESIUM 1.9 mg/dL (1.8-2.4); PHOSPHORUS 3.1 mg/dL (2.5-4.9); POTASSIUM 4.4 mmol/L (3.5-5.1)
[2018-01-21 08:12] LABS: THYROID STIMULATING HORMONE 1.272 uIU/mL (0.358-3.74)
[2018-01-21] MEDS: METOPROLOL TARTRATE 25 MG TABLET PO SCH ×2 (08:16→16:31)
[2018-01-21] MEDS: LOSARTAN POTASSIUM 25 MG TABLET PO SCH (08:17)
[2018-01-21] MEDS: GABAPENTIN 100 MG CAPSULE PO SCH ×3 (08:17→16:30)
[2018-01-21] MEDS: VANCOMYCIN 0.75 GM in IV D5W 250 ML IV SCH (09:21)
[2018-01-21] MEDS: HYDROMORPHONE INJ 2 MG/ML DISP.SYRIN IV PRN ×3 (09:36→16:37)
[2018-01-21] MEDS: PIPERACILLIN /TAZOBACTAM 3.375 G in IV D5W 50 ML IV SCH ×3 (12:18→23:13)
[2018-01-21] MEDS: VANCOMYCIN 1 GM in IV D5W 250 ML IV SCH (16:37)
[2018-01-21] MEDS ORDERED: PIPERACILLIN /TAZOBACTAM 3.375 G in IV D5W 50 ML IV SCH (19:00)
[2018-01-22] MEDS: VANCOMYCIN 1 GM in IV D5W 250 ML IV SCH ×3 (00:23→23:45)
[2018-01-22] MEDS: PIPERACILLIN /TAZOBACTAM 3.375 G in IV D5W 50 ML IV SCH ×2 (05:41→12:39)
[2018-01-22] MEDS: IV NS 0.9% 1,000 ML IV PRN ×2 (06:16→22:09)
[2018-01-22 06:55] LABS: CALCIUM, SERUM 8.7 mg/dL (8.5-10.1); POTASSIUM 4.6 mmol/L (3.5-5.1)
[2018-01-22 08:00] VITALS: BP 125/76
[2018-01-22] MEDS: LOSARTAN POTASSIUM 25 MG TABLET PO SCH (08:34)
[2018-01-22] MEDS: GABAPENTIN 100 MG CAPSULE PO SCH ×3 (08:34→17:57)
[2018-01-22] MEDS: METOPROLOL TARTRATE 25 MG TABLET PO SCH ×2 (08:34→17:58)
[2018-01-22] MEDS: ACETAMINOPHEN 325 MG TABLET PO PRN (15:24)
[2018-01-22 16:00] VITALS: BP 120/78
[2018-01-22] MEDS: LACTOBACILLUS RHAMNOSUS GG 1 EACH CAP.SPRINK PO SCH (17:57)
[2018-01-22] MEDS: LEVOFLOXACIN (500MG) 500 MG TABLET PO SCH (17:57)
[2018-01-22 20:00] VITALS: BP 100/58
[2018-01-23] MEDS: HYDROCODONE/APAP 5/325MG 1 EACH TABLET PO PRN ×3 (02:07→20:18)
[2018-01-23] MEDS: HYDROMORPHONE INJ 2 MG/ML DISP.SYRIN IV PRN ×4 (05:46→21:14)
[2018-01-23 07:33] LABS: CALCIUM, SERUM 8.3 mg/dL (8.5-10.1); CREATININE 0.9 mg/dL (0.6-1.3)
[2018-01-23 08:00] VITALS: BP 101/61
[2018-01-23] MEDS: LOSARTAN POTASSIUM 25 MG TABLET PO SCH (08:18)
[2018-01-23] MEDS: METOPROLOL TARTRATE 25 MG TABLET PO SCH ×2 (08:28→16:17)
[2018-01-23] MEDS: LACTOBACILLUS RHAMNOSUS GG 1 EACH CAP.SPRINK PO SCH ×2 (08:28→16:22)
[2018-01-23] MEDS: GABAPENTIN 100 MG CAPSULE PO SCH ×3 (08:28→16:22)
[2018-01-23] MEDS ORDERED: LEVO500T2 PO (10:00)
[2018-01-23] MEDS ORDERED: LACT1CAP72 PO (10:00)
[2018-01-23] MEDS ORDERED: VANC1PLA10 IV (10:00)
[2018-01-23] MEDS ORDERED: RXVAN XX (10:00)
[2018-01-23] MEDS: VANCOMYCIN 1 GM in IV D5W 250 ML IV SCH ×2 (12:05→23:38)
[2018-01-23] MEDS: IV NS 0.9% 1,000 ML IV PRN (12:26)
[2018-01-23 16:00] VITALS: BP 106/71
[2018-01-23] MEDS: ACETAMINOPHEN 325 MG TABLET PO PRN (16:22)
[2018-01-23] MEDS: LEVOFLOXACIN (500MG) 500 MG TABLET PO SCH (16:22)
[2018-01-23 20:00] VITALS: BP 114/69
[2018-01-23] MEDS ORDERED: LORAZEPAM INJ 2 MG/ML VIAL ONE (20:51)
[2018-01-23] MEDS: LORAZEPAM INJ 2 MG/ML VIAL IV PRN (20:53)
[2018-01-24] MEDS: IV NS 0.9% 1,000 ML IV PRN (05:51)
[2018-01-24] MEDS: HYDROMORPHONE INJ 2 MG/ML DISP.SYRIN IV PRN ×3 (06:25→20:45)
[2018-01-24 07:15] LABS: CALCIUM, SERUM 8.4 mg/dL (8.5-10.1); CREATININE 0.8 mg/dL (0.6-1.3); POTASSIUM 3.9 mmol/L (3.5-5.1)
[2018-01-24 08:00] VITALS: BP 116/68
[2018-01-24] MEDS: LACTOBACILLUS RHAMNOSUS GG 1 EACH CAP.SPRINK PO SCH ×2 (09:11→17:00)
[2018-01-24] MEDS: LOSARTAN POTASSIUM 25 MG TABLET PO SCH (09:12)
[2018-01-24] MEDS: GABAPENTIN 100 MG CAPSULE PO SCH ×3 (09:12→18:45)
[2018-01-24] MEDS: METOPROLOL TARTRATE 25 MG TABLET PO SCH ×2 (09:13→17:00)
[2018-01-24] MEDS: LORAZEPAM INJ 2 MG/ML VIAL IV PRN ×2 (09:19→22:18)
[2018-01-24] MEDS: VANCOMYCIN 1 GM in IV D5W 250 ML IV SCH (12:25)
[2018-01-24 16:00] VITALS: BP 98/64
[2018-01-24 20:00] VITALS: BP 120/58
[2018-01-24] MEDS: AMPICILLIN 1 GM in IV NS 0.9% 50 ML IV SCH (20:45)
[2018-01-24] MEDS: ACETAMINOPHEN 325 MG TABLET PO PRN (22:25)
[2018-01-25] MEDS: IV NS 0.9% 1,000 ML IV PRN (06:06)
[2018-01-25] MEDS: AMPICILLIN 1 GM in IV NS 0.9% 50 ML IV SCH ×3 (06:06→20:09)
[2018-01-25 07:25] LABS: CALCIUM, SERUM 8.2 mg/dL (8.5-10.1); CREATININE 0.9 mg/dL (0.6-1.3); POTASSIUM 4.2 mmol/L (3.5-5.1)
[2018-01-25 07:52] VITALS: BP 122/74
[2018-01-25] MEDS: METOPROLOL TARTRATE 25 MG TABLET PO SCH ×2 (08:12→16:09)
[2018-01-25] MEDS: LACTOBACILLUS RHAMNOSUS GG 1 EACH CAP.SPRINK PO SCH ×2 (08:12→16:09)
[2018-01-25] MEDS: LOSARTAN POTASSIUM 25 MG TABLET PO SCH (08:12)
[2018-01-25] MEDS: GABAPENTIN 100 MG CAPSULE PO SCH ×3 (08:12→16:09)
[2018-01-25] MEDS ORDERED: AMPI1VIA12 IJ (10:10)
[2018-01-25] MEDS: HYDROMORPHONE INJ 2 MG/ML DISP.SYRIN IV PRN (14:07)
[2018-01-25] MEDS: ACETAMINOPHEN 325 MG TABLET PO PRN (14:35)
[2018-01-25 16:00] VITALS: BP 105/67
[2018-01-25 20:00] VITALS: BP 103/59
[2018-01-25] MEDS: HYDROCODONE/APAP 5/325MG 1 EACH TABLET PO PRN (20:13)
== END 2018-01-25 21:00 | disposition home health service (06) | DRG 559 ==
LOC: ER 13:25 → TELE 16:27 → MED 01-21 08:33
PROVIDERS: ADMIT Nurse Practitioner Acute Care; ATTEND Nurse Practitioner Acute Care
PROC: 02HV33Z Insertion of Infusion Device into Superior Vena Cava, Percutaneous Approach (ICD-10-PCS; principal; 2018-01-24)
PROC: B548ZZA Ultrasonography of Superior Vena Cava, Guidance (ICD-10-PCS; 2018-01-24)
DX: T84.59XA Infection and inflammatory reaction due to other internal joint prosthesis, initial encounter (principal); N17.0 Acute kidney failure with tubular necrosis; A41.9 Sepsis, unspecified organism; E44.0 Moderate protein-calorie malnutrition; I48.2 Chronic atrial fibrillation; I10 Essential (primary) hypertension; I25.10 Atherosclerotic heart disease of native coronary artery without angina pectoris; L03.114 Cellulitis of left upper limb; Z79.899 Other long term (current) drug therapy; Z96.611 Presence of right artificial shoulder joint; Z96.612 Presence of left artificial shoulder joint; Z98.890 Other specified postprocedural states; Y83.9 Surgical procedure, unspecified as the cause of abnormal reaction of the patient, or of later complication, without mention of misadventure at the time of the procedure; Y92.009 Unspecified place in unspecified non-institutional (private) residence as the place of occurrence of the external cause; Z98.1 Arthrodesis status; V89.2XXS Person injured in unspecified motor-vehicle accident, traffic, sequela; R07.89 Other chest pain
CPT/HCPCS: 36415; 71045-TC; 76882; 80048-TC; 80061-TC; 80076-TC; 80202-TC; 83605-TC; 83735-TC; 84100-TC; 84443-TC; 84484-TC; 85025-TC; 85652-TC; 85730-TC; 87040-TC; 87070-TC; 87081-TC; 87186-TC; A4216; A4606; A6253; A6402; C1751; J0290; J1170; J2060; J2270; J2405; J2543; J3370; J7030; J7060; Z7610

== ENCOUNTER 2018-01-27 11:40 | Outpatient (CLI) | payer MEDICARE, MEDICAID ==
[~2018-01-27 11:40] MED LIST changes: -AMIO200T7 PO; +AMPI1VIA12 IJ; +LACT1CAP72 PO; +LOSA25TA13 PO; -NAPR220T66 PO; +OXYC-133 PO; -RIVA10TA PO
[2018-01-27 11:49] VITALS: BP 131/72
[2018-01-27 11:51] VITALS: BP 131/72
== END 2018-01-27 23:59 | disposition home or self-care (01) ==
LOC: MSC 11:40
PROVIDERS: ATTEND Internal Medicine
DX: T84.59XD Infection and inflammatory reaction due to other internal joint prosthesis, subsequent encounter (principal); B95.2 Enterococcus as the cause of diseases classified elsewhere; G89.4 Chronic pain syndrome; I48.91 Unspecified atrial fibrillation; G62.9 Polyneuropathy, unspecified; I10 Essential (primary) hypertension; E46 Unspecified protein-calorie malnutrition; E88.09 Other disorders of plasma-protein metabolism, not elsewhere classified; Z79.82 Long term (current) use of aspirin

== ENCOUNTER 2018-01-28 13:32 | Inpatient (IN) | payer MEDICARE, MEDICAID ==
[~2018-01-28] VITALS: Ht 165.1 cm; Wt 65.3 kg
[2018-01-28] MEDS ORDERED: HYDROMORPHONE INJ 2 MG/ML DISP.SYRIN ONE (13:48)
[2018-01-28] MEDS ORDERED: ONDANSETRON HCL/PF 4 MG/2 ML VIAL ONE (13:48)
[2018-01-28] MEDS ORDERED: IV NS 0.9% 1,000 ML BAG IV ONE (14:00)
[2018-01-28] MEDS ORDERED: ONDANSETRON HCL/PF 4 MG/2 ML VIAL IVP ONE (14:00)
[2018-01-28] MEDS ORDERED: HYDROMORPHONE 1 MG/1 ML DISP.SYRIN IV ONE (14:00)
[2018-01-28 14:03] LABS: BASOPHILS % (AUTO) 0.3 % (0.0-2.0); EOSINOPHILS % (AUTO) 2.2 % (0.0-6.0); HEMATOCRIT 34 % (39-51); HEMOGLOBIN 11.8 g/dL (13.5-17.5); LYMPHOCYTES # (AUTO) 1.6 /CMM (0.8-4.8); LYMPHOCYTES % (AUTO) 15.5 % (20.0-44.0); MEAN CORPUSCULAR HGB CONC 34 g/dl (31.0-36.0); MEAN CORPUSCULAR VOLUME 87 fL (80-96); MONOCYTES # (AUTO) 1.1 /CMM (0.1-1.30); MONOCYTES % (AUTO) 10.1 % (2.0-12.0); NEUTROPHILS # (AUTO) 7.7 /CMM (1.8-8.9); NEUTROPHILS % (AUTO) 71.9 % (43.0-81.0); PLATELET COUNT (AUTO) 326 /CMM (150-450); RDW COEFFICIENT OF VARIATION 11.9 (11.5-15.0); RED BLOOD CELL COUNT(AUTO) 3.94 MIL/uL (4.5-6.0); WHITE BLOOD COUNT (AUTO) 10.6 K/uL (4.3-11.0)
[2018-01-28 14:13] LABS: CALCIUM, SERUM 8.2 mg/dL (8.5-10.1); CARBON DIOXIDE 25 mmol/L (21-32); CHLORIDE 106 mmol/L (98-107); CREATININE 1.2 mg/dL (0.6-1.3); GLUCOSE 84 mg/dL (74-106); POTASSIUM 4.3 mmol/L (3.5-5.1); SODIUM SERUM 140 mmol/L (136-145); UREA NITROGEN, BLOOD 30 mg/dL (7-18)
[2018-01-28 14:17] LABS: INR 1.05 (0.85-1.15)
[2018-01-28 14:21] LABS: TROPONIN I < 0.017 ng/mL (0.00-0.056)
[2018-01-28 14:24] LABS: ALANINE AMINOTRANSFERASE 26 U/L (12-78); ALBUMIN 2.5 g/dL (3.4-5.0); ALKALINE PHOSPHATASE 85 U/L (46-116); ASPARTATE AMINOTRANSFERASE 18 U/L (15-37); BILIRUBIN,DIRECT 0.1 mg/dL (0.0-0.2); BILIRUBIN,TOTAL 0.3 mg/dL (0.2-1.0); TOTAL PROTEIN, SERUM 6.3 g/dL (6.4-8.2)
[2018-01-28] MEDS ORDERED: ZOLPIDEM TARTRATE 5 MG TABLET PO PRN (15:00)
[2018-01-28] MEDS ORDERED: Z GUARD REMEDY 2 OZ OINT TP PRN (15:00)
[2018-01-28] MEDS ORDERED: ENOXAPARIN SODIUM 30 MG/0.3 ML DISP.SYRIN SQ SCH (15:00)
[2018-01-28] MEDS ORDERED: ONDANSETRON HCL/PF 4 MG/2 ML VIAL IVP PRN (15:00)
[2018-01-28] MEDS ORDERED: HYDROCODONE/APAP 5/325MG 1 EACH TABLET PO PRN (15:00)
[2018-01-28] MEDS ORDERED: MAG HYDROX/AL HYDROX/SIMETH 30 ML UDC PO PRN (15:00)
[2018-01-28] MEDS ORDERED: HYDROCODONE/APAP 10/325MG 1 EA TABLET PO PRN (15:00)
[2018-01-28] MEDS ORDERED: ACETAMINOPHEN 325 MG TABLET PO PRN (15:00)
[2018-01-28] MEDS ORDERED: IV NS 0.9% 1,000 ML IV ONE (15:00)
[2018-01-28] MEDS ORDERED: MAGNESIUM HYDROXIDE 30 ML UDC PO PRN (15:00)
[2018-01-28 15:24] LABS: APPEARANCE,URINE CLEAR (CLEAR); BILIRUBIN,URINE NEGATIVE (NEGATIVE); BLOOD, URINE 1+ Ery/uL (NEGATIVE); COLOR,URINE YELLOW (YELLOW); KETONES,URINE NEGATIVE (NEGATIVE); LEUKOCYTE ESTERASE ,URINE NEGATIVE (NEGATIVE); NITRITE, URINE NEGATIVE (NEGATIVE); PROTEIN,URINE NEGATIVE (NEGATIVE); UGLUCOSE NEGATIVE (NEGATIVE); UROBILINOGEN,URINE 0.2 EU/dL (0.2)
[2018-01-28 16:09] LABS: BACTERIA,URINE Few /HPF (None Seen); SQUAMOUS EPITHELIAL CELL,UR Few /HPF (None Seen); WBC,URINE 0-2 /HPF (0-3)
[2018-01-28 16:10] LABS: YEAST,URINE Few /HPF (None Seen)
--- NOTE | 2018-01-28 16:10 | NUR ---
REPORT GIVEN TO JAYNA OSBORNE FOR MICAH UPON ADMISSION.
[2018-01-28 17:00] VITALS: BP 76/52
[2018-01-28] MEDS ORDERED: MORPHINE SULFATE INJ 4 MG/ML DISP.SYRIN IV PRN (17:00)
[2018-01-28] MEDS: GABAPENTIN 100 MG CAPSULE PO SCH (17:00)
[2018-01-28 17:55] VITALS: BP 87/78
[2018-01-28] MEDS: LACTOBACILLUS RHAMNOSUS GG 1 EACH CAP.SPRINK PO SCH (18:03)
--- NOTE | 2018-01-28 19:04 | NUR ---
RN NOTES: PER DR SLOAN, DNR/DNI. PATIENT CONFIRMED WISHES. DOCUMENT PLACED IN CHART.
--- NOTE | 2018-01-28 19:14 | NUR ---
RN NOTES: PATIENT PATIENT STABLE. RESTING IN BED. PATIENT ON TELE MONITOR WITH SINUS RHYTHM WITH HR OF 70S. PATIENT DENYING DIZZINESS. DENYING CHEST PAIN. PICC LINE TRIPLE LUMEN PATENT AND INTACT WITH IV HYDRATION RUNNING PER ORDERS. WOUND, JOYCELYN, ON LEFT SHOULDER CLEANSED WITH NS AND PATTED DRY. COVERED WITH DRESSING. PICTURE PLACED IN CHART. BED IN LOWEST LOCKED POSITION. CALL LIGHT WITHIN REACH. ALARM ON. ENDORSED TO NEXT SHIFT
--- NOTE | 2018-01-28 19:40 | NUR ---
GLOBAL TRANSPORTATION MANAGER NOTE: PATIENT RESTING IN BED, NO ACUTE DISTRESS NOTED. BREATHING EVEN AND UNLABORED, NO SOB NOTED. PICC LINE TO LORRI IN PLACE. INFUSING NS AT 100ML/HR. TELE READING SR 72. DRESSING TO LEFT SHOULDER IN PLACE, NO BLEEDING DRAINAGE NOTED. BED LOCKED AND IN LOWEST POSITION, CALL LIGHT IN REACH, WILL CONTINUE TO MONITOR.
[2018-01-28 20:00] VITALS: BP 85/54
[2018-01-28] MEDS: AMPICILLIN SODIUM INJ 1 GM in IV NS 50 ML IV SCH (20:56)
[2018-01-28] MEDS ORDERED: AMPICILLIN 1 GM VIAL IJ SCH (21:00)
--- NOTE | 2018-01-28 21:00 | NUR ---
FUNDING COORDINATOR NOTE: PATIENT WITH ORDERS FOR AMPICILLIN 1 GRAM IV EVERY 8 HOURS SCHEDULED AT 1800, MEDICATION NOT DELIVERED UNTIL NOW. MEDICATION GIVEN ORDERED. WILL CONTINUE TO MONITOR.
[2018-01-29] VITALS: BP 90/51
[2018-01-29 04:00] VITALS: BP 96/57
[2018-01-29] MEDS: AMPICILLIN SODIUM INJ 1 GM in IV NS 50 ML IV SCH ×2 (04:13→09:12)
[2018-01-29 06:00] VITALS: BP 95/52
--- NOTE | 2018-01-29 06:30 | NUR ---
HEAD FILTER PRESS TENDER NOTE: PATIENT RESTING IN BED, NO ACUTE DISTRESS NOTED. BREATHING EVEN AND UNLABORED, NO SOB NOTED. PICC LINE TO LORRI IN PLACE, INFUSING NS AT 100ML/HR. TELE READING SR 70. DRESSING TO LEFT SHOULDER IN PLACE. BED LOCKED AND IN LOWEST POSITION, CALL LIGHT IN REACH, WILL ENDORSE TO DAY NURSE TO CONTINUE WITH PLAN OF CARE.
[2018-01-29 06:41] LABS: BASOPHILS % (AUTO) 0.4 % (0.0-2.0); EOSINOPHILS % (AUTO) 3.2 % (0.0-6.0); HEMATOCRIT 31 % (39-51); HEMOGLOBIN 10.8 g/dL (13.5-17.5); LYMPHOCYTES # (AUTO) 1.3 /CMM (0.8-4.8); LYMPHOCYTES % (AUTO) 24.6 % (20.0-44.0); MEAN CORPUSCULAR HGB CONC 35 g/dl (31.0-36.0); MEAN CORPUSCULAR VOLUME 89 fL (80-96); MONOCYTES # (AUTO) 0.6 /CMM (0.1-1.30); NEUTROPHILS # (AUTO) 3.2 /CMM (1.8-8.9); NEUTROPHILS % (AUTO) 60.8 % (43.0-81.0); PLATELET COUNT (AUTO) 257 /CMM (150-450); RDW COEFFICIENT OF VARIATION 12.6 (11.5-15.0); RED BLOOD CELL COUNT(AUTO) 3.51 MIL/uL (4.5-6.0); WHITE BLOOD COUNT (AUTO) 5.2 K/uL (4.3-11.0)
[2018-01-29 06:49] LABS: PHOSPHORUS 2.1 mg/dL (2.5-4.9); POTASSIUM 4.2 mmol/L (3.5-5.1)
--- NOTE | 2018-01-29 07:22 | NUR ---
HADOOP JAVA DEVELOPER OPENING NOTE RECEIVED BEDSIDE SBAR REPORT ON THE PATIENT. PATIENT IS A/O X4, ASLEEP, EASILY AWAKEN IN BED. BED IS LOCKED IN LOWEST POSITION, SIDE RAILS UP X2. PATIENT IS AMBULATORY AND ORIENTED TO OWN ABILITIES. CHEST IS RISING EQUALLY BILATERALLY. DENIES CHEST PAIN/DISCOMFORT AT THIS TIME. EXTERNAL ENVIRONMENTAL PLANNER READING SR90 BPM. PATIENT IS ON ROOM AIR. SPO2 96%. ALL NEEDS ARE MET. CALL LIGHT WITHIN REACH. EDUCATED TO USE CALL LIGHT TO CALL FOR ASSISTANCE. PATIENT VERBALIZED UNDERSTANDING. WILL CONTINUE TO ASSESS/MONITOR THROUGHOUT THE SHIFT.
[2018-01-29 08:00] VITALS: BP 95/52
[2018-01-29] MEDS: LACTOBACILLUS RHAMNOSUS GG 1 EACH CAP.SPRINK PO SCH (09:11)
[2018-01-29] MEDS: GABAPENTIN 100 MG CAPSULE PO SCH (09:12)
--- NOTE | 2018-01-29 13:40 | NUR ---
DISCHARGE ORDER RECEIVED. DISCHARGE EDUCATION PROVIDED AT THE BEDSIDE. DRESSING CHANGE COMPLETES PER ORDER. PATIENT STATED HE DOES NOT WANT PICTURE TO BE TAKEN BECAUSE HE ALREADY GOT DRESSED. JOYCELYN WERE CLEAN AND DRY. VS WNL. PICC LINE WAS NOT REMOVED PER DR SLOAN PATIENT WILL BE CONTINUING WITH HIS PREVIOUS HOME HEALTH ANTIBIOTIC COURSE. PATIENT LEFT THE UNIT IN STABLE CONDITION ACCOMPANIED BY THE FRIEND SALVADOR. CHARGE NURSE SD NOTIFIED.
== END 2018-01-29 13:52 | disposition home health service (06) | DRG 559 ==
LOC: ER 13:33 → TELE 16:18
PROVIDERS: ADMIT Internal Medicine; ATTEND Internal Medicine
PROC: 02HV33Z Insertion of Infusion Device into Superior Vena Cava, Percutaneous Approach (ICD-10-PCS; principal; 2018-01-29)
DX: T84.59XA Infection and inflammatory reaction due to other internal joint prosthesis, initial encounter (principal); E43 Unspecified severe protein-calorie malnutrition; N17.0 Acute kidney failure with tubular necrosis; I48.91 Unspecified atrial fibrillation; B99.9 Unspecified infectious disease; D63.8 Anemia in other chronic diseases classified elsewhere; E86.0 Dehydration; G89.29 Other chronic pain; Z66 Do not resuscitate; Z79.899 Other long term (current) drug therapy; Z91.013 Allergy to seafood; Y83.8 Other surgical procedures as the cause of abnormal reaction of the patient, or of later complication, without mention of misadventure at the time of the procedure; Y92.009 Unspecified place in unspecified non-institutional (private) residence as the place of occurrence of the external cause; Y83.9 Surgical procedure, unspecified as the cause of abnormal reaction of the patient, or of later complication, without mention of misadventure at the time of the procedure
CPT/HCPCS: 36415; 71045-TC; 80048-TC; 80076-TC; 81000-TC; 83605-TC; 83735-TC; 84100-TC; 84484-TC; 85025-TC; 85730-TC; 87040-TC; 87081-TC; 87086-TC; A4216; A4606; A6402; J0290; J1170; J1650; J2405; J7030; Z7610

== ENCOUNTER 2018-02-02 15:59 | Emergency (ER) | payer MEDICARE, MEDICAID ==
[~2018-02-02] VITALS: Ht 170.2 cm; Wt 64.4 kg
[2018-02-02 16:11] VITALS: BP 95/69
[2018-02-02] MEDS ORDERED: IV NS 0.9% 1,000 ML BAG IV ONE (16:30)
--- NOTE | 2018-02-02 17:20 | NUR ---
PT NOTED WITH LORRI PICC LINE DOUBLE LUMEN- ACCESSED WHITE PORT FLUSHING WITHOUT RESISTANCE AND WITH NOTED GOOD AMOUNT BLOOD RETURN. IV FLUIDS GIVEN AND ABX WITH NO LEAK NOTED, NO LEAK REPORTED ALSO BY PT. PICC LINE DRESSING NOTED DRY AND INTACT. Patient discharged to home in stable condition. Written and verbal after care instructions given. Patient verbalizes understanding of instruction.
[2018-02-02] MEDS ORDERED: AMPICILLIN 1 GM in IV NS 0.9% 50 ML IV SCH (18:00)
== END 2018-02-02 17:50 | disposition home or self-care (01) ==
LOC: ER 16:00
DX: Z45.2 Encounter for adjustment and management of vascular access device (principal); I10 Essential (primary) hypertension; I48.91 Unspecified atrial fibrillation; Z98.890 Other specified postprocedural states
CPT/HCPCS: 96365; 99284; A4216; A4606; J0290; J7030; Z7610

== ENCOUNTER 2018-02-14 14:17 | Emergency (ER) | payer MEDICARE, MEDICAID ==
[~2018-02-14] VITALS: Ht 170.2 cm; Wt 62.6 kg
--- NOTE | 2018-02-14 14:20 | NUR ---
BIB RA 78 FROM HOME, WORSENING NAUSEA/VOMITING AND SHAKING X 2 DAYS. STATING THIS IS D/T MANAGER CAFE ABRUPTLY STOPPING ALL HIS PAIN MEDICATIONS. ALSO C/O BEING WEAK. PATIENT IS A/OX 3, BREATHING EVEN AND UNLABORED. NO SOB, NAD, VITALS STABLE. SAFETY AND COMFORT MEASURES IN PLACE. AWAITING MD ORDERS.
[2018-02-14] MEDS ORDERED: ONDANSETRON HCL/PF 4 MG/2 ML VIAL ONE (14:43)
[2018-02-14] MEDS ORDERED: MORPHINE SULFATE INJ 4 MG/ML DISP.SYRIN ONE (14:43)
[2018-02-14 14:51] LABS: BASOPHILS % (AUTO) 0.7 % (0.0-2.0); EOSINOPHILS % (AUTO) 3.7 % (0.0-6.0); HEMATOCRIT 33 % (39-51); HEMOGLOBIN 11.2 g/dL (13.5-17.5); LYMPHOCYTES # (AUTO) 1.4 /CMM (0.8-4.8); LYMPHOCYTES % (AUTO) 20.9 % (20.0-44.0); MEAN CORPUSCULAR HGB CONC 34 g/dl (31.0-36.0); MEAN CORPUSCULAR VOLUME 86 fL (80-96); MONOCYTES # (AUTO) 0.7 /CMM (0.1-1.30); MONOCYTES % (AUTO) 10.2 % (2.0-12.0); NEUTROPHILS # (AUTO) 4.5 /CMM (1.8-8.9); NEUTROPHILS % (AUTO) 64.5 % (43.0-81.0); PLATELET COUNT (AUTO) 254 /CMM (150-450); RDW COEFFICIENT OF VARIATION 12.2 (11.5-15.0); RED BLOOD CELL COUNT(AUTO) 3.82 MIL/uL (4.5-6.0); WHITE BLOOD COUNT (AUTO) 6.9 K/uL (4.3-11.0)
[2018-02-14] MEDS ORDERED: IV NS 0.9% 1,000 ML BAG IV ONE (15:00)
[2018-02-14] MEDS ORDERED: MORPHINE SULFATE INJ 2 MG/ML DISP.SYRIN IV ONE (15:00)
[2018-02-14] MEDS ORDERED: ONDANSETRON HCL/PF 4 MG/2 ML VIAL IVP ONE (15:00)
[2018-02-14 15:01] LABS: CALCIUM, SERUM 8.5 mg/dL (8.5-10.1); CREATININE 0.7 mg/dL (0.6-1.3); POTASSIUM 3.9 mmol/L (3.5-5.1)
[2018-02-14 15:06] LABS: ALBUMIN 2.6 g/dL (3.4-5.0); BILIRUBIN,DIRECT 0.1 mg/dL (0.0-0.2); BILIRUBIN,TOTAL 0.3 mg/dL (0.2-1.0); TOTAL PROTEIN, SERUM 6.1 g/dL (6.4-8.2)
[2018-02-14 16:24] VITALS: BP 111/65
--- NOTE | 2018-02-14 16:26 | NUR ---
Patient discharged to home in stable condition. Written and verbal after care instructions given. Patient verbalizes understanding of instruction.
== END 2018-02-14 16:25 | disposition home or self-care (01) ==
LOC: ER 14:21
DX: R11.2 Nausea with vomiting, unspecified (principal); T84.59XA Infection and inflammatory reaction due to other internal joint prosthesis, initial encounter; I10 Essential (primary) hypertension; I48.91 Unspecified atrial fibrillation; Z60.2 Problems related to living alone
CPT/HCPCS: 36415; 80048; 80076; 83690; 85025; 96361; 96374; 96375; 99284; A4606; J2270; J2405; J7030; Z7610